=== PATIENT | male | born 1995 | race Caucasian/White ===

== ENCOUNTER 2016-08-18 06:21 | Day surgery (SDCO) | payer OTHER ==
[~2016-08-18] VITALS: Ht 170.2 cm; Wt 63.5 kg
[2016-08-18 06:47] LABS: BASOPHIL 0.2 % (0-2); EOSINOPHIL 0.8 % (0-5); HCT 41.4 % (42.0-52.0); HGB 15.1 g/dl (13.2-18.0); LYMPHOCYTE 14.4 % (15-48); MCH 30.8 pg (25.0-31.0); MCHC 36.5 g/dL (32.0-36.0); MCV 84.5 fL (78.0-100.0); MONOCYTE 3.8 % (0-12); MPV 9.5 fL (6.0-9.5); NEUTROPHIL 80.8 % (41-80); PLT 293 K/uL (150-400); RDW 12.8 % (11.5-14.0); WBC 10.5 K/uL (4.0-10.5)
[2016-08-18 07:17] LABS: ALBUMIN 4.4 g/dL (3.5-5.0); BILIRUBIN - TOTAL 0.6 mg/dL (0.1-1.0); CREATININE 0.8 mg/dL (0.7-1.2); GLOBULIN (CALCULATION) 2.5 g/dL (2.2-4.2); POTASSIUM 3.7 mmol/L (3.5-5.1); TOTAL PROTEIN 6.9 g/dL (6.4-8.3)
[2016-08-18 07:20] LABS: BILIRUBIN NEGATIVE (NEGATIVE); BLOOD NEGATIVE Ery/uL (NEGATIVE); CLARITY CLEAR (CLEAR); COLOR YELLOW (YELLOW); GLUCOSE (U) NORMAL (NORMAL); KETONE (U) NEGATIVE (NEGATIVE); LEUKOCYTES NEGATIVE Leu/uL (NEGATIVE); NITRITE NEGATIVE (NEGATIVE); PROTEIN NEGATIVE (NEGATIVE); SPECIFIC GRAVITY 1.015 (1.001-1.030); UROBILINOGEN 0.2 mg/dL (0.2-1.0)
[2016-08-18 07:28] LABS: LACTIC ACID 2.6 mmol/L (0.5-2.2)
[2016-08-19 04:15] LABS: HCT 37.4 % (42.0-52.0); HGB 13.3 g/dl (13.2-18.0); MCH 30.8 pg (25.0-31.0); MCHC 35.6 g/dL (32.0-36.0); MCV 86.6 fL (78.0-100.0); RBC 4.32 M/uL (4.70-6.00); WBC 6.2 K/uL (4.0-10.5)
[2016-08-19 04:43] LABS: POTASSIUM 3.9 mmol/L (3.5-5.1)
[2016-08-19] MEDS ORDERED: NORCO 5-325 TA1 EACH PO (15:19)
== END 2016-08-19 15:30 | disposition home or self-care (01) ==
LOC: FER 06:21 → FAS 11:36 → FMS 16:00
PROVIDERS: Emergency Medicine; ADMIT Surgery
DX: K35.80 Unspecified acute appendicitis (principal)
CPT/HCPCS: 36415; 80048; 80053; 81003; 82150; 83605; 83690; 85025; 87040; 88304; 94010; G0378; J0131; J1170; J1885; J2270; J2405; J2543; J2704; J2710; J3010; Q9962; Q9967